=== PATIENT | female | born 1930 | race Caucasian/White ===

== ENCOUNTER 2016-08-04 10:00 | Outpatient (RCR) | END 2016-08-08 | LOC: NEWBEG 10:00 | PROVIDERS: ATTEND Psychiatry & Neurology Psychiatry | DX: F43.23 Adjustment disorder with mixed anxiety and depressed mood (principal) | CPT/HCPCS: 90853; 99213 ==

== ENCOUNTER 2016-09-01 10:00 | Outpatient (RCR) | END 2016-09-05 | LOC: NEWBEG 10:00 | PROVIDERS: ATTEND Psychiatry & Neurology Psychiatry | DX: F43.23 Adjustment disorder with mixed anxiety and depressed mood (principal) | CPT/HCPCS: 90832; 90853; 99213 ==

== ENCOUNTER → 2016-10-06 | Outpatient (RCR) | LOC: NEWBEG 09-06 10:21 | PROVIDERS: ATTEND Psychiatry & Neurology Psychiatry | DX: F43.23 Adjustment disorder with mixed anxiety and depressed mood (principal) | CPT/HCPCS: 90832; 90853; 99213 ==

== ENCOUNTER 2016-11-03 10:00 | Outpatient (RCR) | END 2016-11-05 | LOC: NEWBEG 10:00 | PROVIDERS: ATTEND Psychiatry & Neurology Psychiatry | DX: F43.23 Adjustment disorder with mixed anxiety and depressed mood (principal) | CPT/HCPCS: 90853; 99213 ==

== ENCOUNTER 2016-12-01 10:00 | Outpatient (RCR) | END 2016-12-06 | LOC: NEWBEG 10:00 | PROVIDERS: ATTEND Psychiatry & Neurology Psychiatry | DX: F43.23 Adjustment disorder with mixed anxiety and depressed mood (principal) | CPT/HCPCS: 90853; 99213 ==

== ENCOUNTER → 2017-01-05 | Outpatient (RCR) | LOC: NEWBEG 12-07 07:46 | PROVIDERS: ATTEND Psychiatry & Neurology Psychiatry | DX: F43.23 Adjustment disorder with mixed anxiety and depressed mood (principal) | CPT/HCPCS: 90853; 99213 ==

== ENCOUNTER 2017-02-02 10:00 | Outpatient (RCR) | END 2017-02-05 | LOC: NEWBEG 10:00 | PROVIDERS: ATTEND Psychiatry & Neurology Psychiatry | DX: F43.23 Adjustment disorder with mixed anxiety and depressed mood (principal) | CPT/HCPCS: 90853; 99213 ==

== ENCOUNTER 2017-03-02 10:00 | Outpatient (RCR) | END 2017-03-08 | LOC: NEWBEG 10:00 | PROVIDERS: ATTEND Psychiatry & Neurology Psychiatry | DX: F43.23 Adjustment disorder with mixed anxiety and depressed mood (principal) | CPT/HCPCS: 90853; 99213 ==

== ENCOUNTER 2017-03-23 10:00 | Outpatient (RCR) | END 2017-04-07 | LOC: NEWBEG 10:00 | PROVIDERS: ATTEND Psychiatry & Neurology Psychiatry | DX: F43.23 Adjustment disorder with mixed anxiety and depressed mood (principal) | CPT/HCPCS: 90853; 99213 ==